=== PATIENT | female | born 1995 | race Caucasian/White ===

== ENCOUNTER 2019-12-10 00:19 | Emergency (ER) | payer OTHER, SELFPAY ==
[2019-12-10] VITALS (7 sets, daily range): BP systolic 79–132; BP diastolic 42–86; PULSE 103–132; RESP 15–18; TEMP 36.7–36.9; O2SAT 98–100; BMI 18.6
--- NOTE | 2019-12-10 00:47 | ECG_ITS ---
[facility] Test Date: 2019-12-10 Pat Name: Rissa Kyle Department: Room: Gender: Female Spa Associate: : 1995 Requested By: Erlinda Vázquez Order Number: [id number] Hendrickson MD: Riley Ledesma M.D. Measurements Intervals [place] Rate: 112 P: 78 SC: 145 QRS: 83 QRSD: 86 T: 67 QT: 320 QTc: 438 Interpretive Statements SINUS TACHYCARDIA ABNORMAL RHYTHM ECG No previous ECG available for comparison Electronically Signed On 12-11-2019 19:47:56 CDT by Riley Ledesma M.D. [email or web address] Worldwideselect medical [facility] [email or web address]/store/Ov/[id number]
--- NOTE | 2019-12-10 00:48 | ED_ITS ---
HPI - Arrhythmia/Palpitations General: Chief Complaint: Arrhythmia/Palpitations Stated Complaint: LEFT BREAST PAIN Time Seen by Provider: 12/10/19 00:20 Source: patient Mode of arrival: ambulatory Limitations: no limitations History of Present Illness: HPI narrative: Patient is a 24-year-old female who presents to ED today with a complaint of left breast pain and redness that began today. Patient tells me she is breast-feeding her [id number] . She tells me she has had previous episodes of mastitis and this feels similar. She states she noticed a fever today of 101. She treated this with Ibuprofen and Tylenol. She states this evening she was lying on the couch watching television when she began feeling as if her heart was racing and felt short of breath. She states she checked her pulse and it was elevated thus decided to come to the emergency department for evaluation. Patient denies lightheadedness or dizziness. She has no previous cardiac or pulmonary history. No new medications or drug use. MD complaint: rapid heart beat Onset (ago): hour(s) Duration: intermittent Context: occurred during rest Associated symptoms: Deny nausea, pre-syncope, syncope or vomiting Review of Systems Const: Reports: fever(s) and chills; Denies: body aches, fatigue or malaise Card: Reports: palpitations; Denies: chest pain, irregular heart rhythm, edema, swelling of feet/ankles, lightheadedness, syncope, pre-syncope, dyspnea on exertion, orthopnea or leg pain with exertion Resp: Reports: dyspnea; Denies: productive cough, non-productive cough, wheezing, pain on inspiration, change in phlegm color, hemoptysis or chest congestion GI: Denies: abdominal pain, nausea, vomiting or diarrhea : Denies: flank pain, difficulty voiding, dysuria, urinary frequency, urinary urgency or urinary hesitancy Musc: Denies: neck pain, back pain, extremity pain, extremity swelling, joint pain or joint swelling Skin/Breast: Reports: breast skin changes (redness) and other (L breast pain ) Neuro: Denies: headache(s), numbness in extremities, weakness in extremities or sensory changes [facility] ED Female Reproductive History: Date of last menstrual period: 12/09/19 Physical Exam Const: COMMON NORMALS: no acute distress, average body habitus, patient el ented x3, no limitations, healthy appearing, alert and well nourished ORIENTATION/CONSCIOUSNESS: Yes oriented to person, Yes oriented to place and Yes oriented to time HENMT: COMMON NORMALS: normocephalic and atraumatic HEAD & SCALP: normocephalic and atraumatic Chest: OTHER: pt has minor redness/warmth to superior/lateral L breast-area is wedge shaped consistent with mastitis; no induration or concerns for abscess at this time Resp: COMMON NORMALS: normal respiratory effort and clear to auscultation bilaterally AUSCULTATION: clear to auscultation bilaterally Cardio: COMMON NORMALS: regular rhythm RATE: tachycardic RHYTHM: regular rhythm GI: COMMON NORMALS: Normal to inspection, nondistended, normoactive bowel sounds present, Soft to palpation, non-tender, No hepatosplenomegaly present and no masses PALPATION: Yes Soft to palpation and Yes No hepatosplenomegaly present Extremity: GENERAL: Yes normal exam except as noted Neuro: COMMON NORMALS: patient oriented x3 SENSORIUM/ORIENTATION: Yes alert, Yes oriented to person, Yes oriented to place and Yes oriented to time Skin: NARRATIVE SKIN EXAM: see chest examination; otherwise normal skin exam Course Reevaluation(s): Reevaluation #1: Patient extremely anxious upon re- examination. She keeps asking me if I believe she has heart disease. She is complaining now of epigastric pain. She states she burps and tastes pizza that she had this evening. She is slightly diaphoretic. She states she feels better knowing her EKG was normal apart from a slightly fast rate. Pts labs overall look good. CXR normal. Will give her a GI cocktail and 0.5mg ativan and see if this will help with symptoms. Reevaluation #2: Patient states GI cocktail completely alleviated her GI pain. She does feel better after 0.5mg ativan but still anxious. She is asking about her CXR stating her father had lung cancer and emphysema and questions whether she has these as well. Patient's HR goes anywhere from 90s to 110s-staying in sinus rhythm. Her pressure is stable. There was an episode during her stay where I believe she became extremely anxious and vasovagaled down but pressures are stable now. Vital Signs: Vital signs: Vital Signs Temperature 98.0 F 12/10/19 01:30 Pulse Rate 115 H 12/10/19 03:04 Respiratory Rate 18 12/10/19 03:04 Blood Pressure 110/69 12/10/19 03:04 Pulse Oximetry 98 12/10/19 03:04 MDM - Arrhythmia/Palpitations MDM Narrative: Medical decision making narrative: Patient has remained tachycardic throughout her stay. I feel this is most likely due to her extreme anxiety. She has mild leukocytosis at 12.4. She has a normal lactate. She is afebrile here. She has a mild to moderate left breast mastitis. There is nothing else clinically to explain the elevations in her heart rate and reported fevers. Her UA is normal. CXR is normal. Patient will be discharged home with a prescription for Keflex. Return to ED precautions given. Lab Data: Labs: Lab Results 12/10/19 12/10/19 12/10/19 Range/Units 00:51 01:04 01:04 WBC 12.4 H (4.0-10.0) 10^3/ uL RBC 4.09 L (4.1-5.3) 10^6/u L Hgb 12.5 (11.5-15.3) g/dL Hct 38.5 (37.0-47.0) % MCV 94.1 (81-99) fL MCH 30.6 (28.0-34.0) pg MCHC 32.5 (30.0-36.0) g/dL RDW 12.2 (12.1-15.1) % Plt Count 225 (130-400) 10^3/c mm MPV 9.8 (7.4-10.4) fL Neut % (Auto) 83.7 % Lymph % (Auto) 8.1 % [place] % (Auto) 7.7 % Eos % (Auto) 0.1 % Baso % (Auto) 0.2 % Neut # (Auto) 10.36 H (1.8-7.7) 10^3/u L Lymph # (Auto) 1.0 (0.8-4.8) 10^3/u L [place] # (Auto) 1.0 H (0.2-0.9) 10^3/u L Eos # (Auto) 0.0 (0.0-0.8) 10^3/u L Baso # (Auto) 0.0 (0.0-0.1) 10^3/u L Nucleated RBC % (a uto) 0 % Nucleated RBCs # 0.0 /100WBC Sodium 138 (136-145) mmol/L Potassium 3.3 L (3.5-5.1) mmol/L Chloride 105 (98-107) mmol/L Carbon Dioxide 21 L (22-29) mmol/L Anion Gap 15.3 (5-19) BUN 16 (6-20) mg/dL Creatinine 0.8 (0.5-0.9) mg/dL GFR Calculation 88.9 L (90-130) mL/min Glucose 122 H (65-115) mg/dL Calculated Osmolal ity 288 (285-295) mOsm/k g Lactic Acid (0.5-2.2) mmol/L Calcium 8.8 (8.5-10.5) mg/dL Total Bilirubin 0.4 (0.15-1.2) mg/dL AST 14 (0-32) U/L ALT 13 (0-33) U/L Alkaline Phosphata se 85 (35-105) IU/L Total Protein 7.5 (6.6-8.7) g/dL Albumin 4.3 (3.5-5.2) g/dL Globulin 3.2 (1.3-4.6) g/dL HCG, Qual (Negative) Urine Color Yellow (Yellow) Urine Appearance Clear (CLEAR) Urine pH 7 (5-7) Ur Specific Gravit y 1.010 (1.005-1.030) Urine Protein Neg (Negative) Urine Glucose (UA) Norm (Normal) Urine Ketones Negative (Negative) Urine Blood 2+ H (Negative) Urine Nitrate Negative (Negative) Urine Bilirubin Neg (Negative) Urine Urobilinogen Norm (Negative) mg/dL Ur Leukocyte Marian ase Negative (Negative) Urine RBC 0-4 H (0-2) /hpf Urine WBC 0-4 H (0-5) /hpf Ur Squamous Epith Cells 5-10 H (0-5) /hpf Amorphous Sediment Not Reportable Urine Bacteria Trace (NONE) /hpf Urine Mucus 1+ /hpf 12/10/19 12/10/19 Range/Units 01:04 01:04 WBC (4.0-10.0) 10^3/ uL RBC (4.1-5.3) 10^6/u L Hgb (11.5-15.3) g/dL Hct (37.0-47.0) % MCV (81-99) fL MCH (28.0-34.0) pg MCHC (30.0-36.0) g/dL RDW (12.1-15.1) % Plt Count (130-400) 10^3/c mm MPV (7.4-10.4) fL Neut % (Auto) % Lymph % (Auto) % [place] % (Auto) % Eos % (Auto) % Baso % (Auto) % Neut # (Auto) (1.8-7.7) 10^3/u L Lymph # (Auto) (0.8-4.8) 10^3/u L [place] # (Auto) (0.2-0.9) 10^3/u L Eos # (Auto) (0.0-0.8) 10^3/u L Baso # (Auto) (0.0-0.1) 10^3/u L Nucleated RBC % (a uto) % Nucleated RBCs # /100WBC Sodium (136-145) mmol/L Potassium (3.5-5.1) mmol/L Chloride (98-107) mmol/L Carbon Dioxide (22-29) mmol/L Anion Gap (5-19) BUN (6-20) mg/dL Creatinine (0.5-0.9) mg/dL GFR Calculation (90-130) mL/min Glucose (65-115) mg/dL Calculated Osmolal ity (285-295) mOsm/k g Lactic Acid 1.8 (0.5-2.2) mmol/L Calcium (8.5-10.5) mg/dL Total Bilirubin (0.15-1.2) mg/dL AST (0-32) U/L ALT (0-33) U/L Alkaline Phosphata se (35-105) IU/L Total Protein (6.6-8.7) g/dL Albumin (3.5-5.2) g/dL Globulin (1.3-4.6) g/dL HCG, Qual Negative (Negative) Urine Color (Yellow) Urine Appearance (CLEAR) Urine pH (5-7) Ur Specific Gravit y (1.005-1.030) Urine Protein (Negative) Urine Glucose (UA) (Normal) Urine Ketones (Negative) Urine Blood (Negative) Urine Nitrate (Negative) Urine Bilirubin (Negative) Urine Urobilinogen (Negative) mg/dL Ur Leukocyte Marian ase (Negative) Urine RBC (0-2) /hpf Urine WBC (0-5) /hpf Ur Squamous Epith Cells (0-5) /hpf Amorphous Sediment Urine Bacteria (NONE) /hpf Urine Mucus /hpf Imaging Data^: CXR: Radiologist's impression: [address] [address] XRay Report Signed Patient: Rissa Kyle Unit #: [id number] : 1995 Age/Sex: 24 / F ADM Date: 12/10/19 Loc: ER Room/Bed: Attending Dr: Ordering Provider/Ordering MD: Erlinda Vázquez Date of Service: 12/10/19 Procedure(s): XR chest 1V portable [id number] Accession Number(s): [id number] Report Number: [id number] PROCEDURE INFORMATION: Exam: XR Chest, 1 View Exam date and time: 12/10/2019 12:48 AM Age: 24 years old Clinical indication: Dyspnea; Left-sided chest pain TECHNIQUE: Imaging protocol: XR of the chest Views: 1 view. COMPARISON: No relevant prior studies available. FINDINGS: Lungs: No CHF/pulmonary edema. Visible lungs appear essentially clear. Pleural space: No visible pneumothorax. No definite pleural fluid. Heart/Mediastinum: Heart size is within normal limits. Bones/joints: No significant acute finding. XR/XR chest 1V portable [id number] IMPRESSION: 1. Essentially unremarkable single view chest. 2. Other findings discussed above. Dictated By: Jeff Sutton MD Signed By: Jeff Sutton MD Signed Date/Time: 12/10/19155 DD/ 3 EKG Data^: EKG 1: EKG interpretation date: 12/10/19 EKG interpretation time: 01:03 Interpretation: Sinus tachycardia Rate [address] elevation or depression changes noted Other EKG comments: Chest X-Ray 12/10/19 00:47 IMPRESSION: 1. Essentially unremarkable single view chest. 2. Other findings discussed above. Discharge Plan Discharge Patient Disposition: Home Clinical Impression: Acute mastitis of left breast, Panic attack Condition: Stable Prescriptions: New Keflex 500 mg capsule 500 mg PO Q6H 7 Days Qty: 28 RF: 0 Discharge Orders: Discharge Order (Routine); Ordered 12/10/19 Ordered By: Erlinda Vázquez Referrals: Axel Melchor MD [Primary Care Provider] - Patient Instructions: Mastitis (ED), Anxiety (ED), Panic Attack Activity Restrictions/Additional Instructions: As discussed you may return to the emergency department for any worsening symptoms including worsening palpitations, heart racing, sweating, lightheadedness/dizziness, passing out episodes, or any other concerns you may have. Discharge Date/Time: 12/10/19 03:04 Coding Level of Care Code ED Aquaculture Director for Chg Fwd Exam Detailed
[2019-12-10 01:24] LABS: Basophils % 0.2 %; Eosinophils % 0.1 %; Hematocrit 38.5 % (37.0-47.0); Hemoglobin 12.5 g/dL (11.5-15.3); Lymphocytes % 8.1 %; Mean Corpuscular HGB Conc 32.5 g/dL (30.0-36.0); Mean Corpuscular Hemoglobin 30.6 pg (28.0-34.0); Mean Corpuscular Volume 94.1 fL (81-99); Mean Platelet Volume 9.8 fL (7.4-10.4); Monocytes % 7.7 %; Neutrophils # 10.36 10^3/uL (1.8-7.7); Neutrophils % 83.7 %; Nucleated Red Blood Cells % 0 %; Platelet Count 225 10^3/cmm (130-400); Red Blood Count 4.09 10^6/uL (4.1-5.3); Red Cell Distribution Width 12.2 % (12.1-15.1); White Blood Count 12.4 10^3/uL (4.0-10.0)
[2019-12-10 01:38] LABS: Lactic Sepsis W/Reflex 1.8 mmol/L (0.5-2.2)
[2019-12-10 01:39] LABS: Alanine Aminotransferase 13 U/L (0-33); Albumin Level 4.3 g/dL (3.5-5.2); Alkaline Phosphatase 85 IU/L (35-105); Anion Gap 15.3 (5-19); Aspartate Amino Transferase 14 U/L (0-32); Blood Urea Nitrogen 16 mg/dL (6-20); Calcium 8.8 mg/dL (8.5-10.5); Carbon Dioxide 21 mmol/L (22-29); Chloride 105 mmol/L (98-107); Globulin 3.2 g/dL (1.3-4.6); Glomerular Filtration Rate 88.9 mL/min (90-130); Glucose 122 mg/dL (65-115); Osmolality Calculated 288 mOsm/kg (285-295); Potassium 3.3 mmol/L (3.5-5.1); Sodium 138 mmol/L (136-145); Total Bilirubin 0.4 mg/dL (0.15-1.2); Total Protein 7.5 g/dL (6.6-8.7)
[2019-12-10 01:50] LABS: Bilirubin Urine Neg (Negative); Blood Urine 2+ (Negative); Glucose Urine UA Norm (Normal); Ketones Urine Negative (Negative); Leukocyte Esterase Urine Negative (Negative); Nitrate Urine Negative (Negative); Protein Urine Neg (Negative); Urine Appearance Clear (CLEAR); Urine Color Yellow (Yellow); Urobilinogen Urine Norm (Negative); pH Urine 7 (5-7)
[2019-12-10 01:50] LABS: HCG, Serum Qual Negative (Negative)
[2019-12-10 01:51] LABS: Add Urine Microscopic? YES
[2019-12-10 01:52] LABS: Add Urine Culture? No; Bacteria Urine TRACE /hpf; Mucus Urine 1+ /hpf; RBC Urine 0-4 /hpf (0-2); WBC Urine 0-4 /hpf (0-5)
--- NOTE | 2019-12-10 01:55 | PC.NURSE ---
Patient stated that she was having burning feeling in her stomach and radiated down her abdomen. ER PA was informed.
--- NOTE | 2019-12-10 01:59 | PC.NURSE ---
rechecked BP for accuracy
[2019-12-10] MEDS: sodium chloride 0.9% 1,000 ML 999 ML IV (02:02)
[2019-12-10] MEDS: lidocaine 2% viscous 15 ML, aluminum-mag hydrox-simethicon 30 ML, sucralfate oral liq 1 GM PO (02:10)
[2019-12-10] MEDS: LORazepam 2 mg/mL INJ 1 mL 0.5 MG IVP ×2 (02:18→02:46)
== END 2019-12-10 03:04 | disposition home or self-care (01) ==
PROVIDERS: Emergency Provider Physician Assistant; PCP Family Medicine
DX: N61.0 Mastitis without abscess (principal); F41.0 Panic disorder [episodic paroxysmal anxiety]
CPT/HCPCS: 12345; 71045; 80053; 81001; 83605; 84703; 85025; 87040; 93005; 96360; 96375; 99283; J2060; J7030

== ENCOUNTER 2021-07-21 21:46 | Emergency (ER) | payer MEDICAID, SELFPAY ==
[2021-07-21 21:52] VITALS: BP 123/80; PULSE 118; RESP 20; TEMP 36.8; O2SAT 96; BMI 20.9
--- NOTE | 2021-07-21 23:18 | ECG_ITS ---
[facility] Test Date: 2021-07-21 Pat Name: Rissa Kyle Department: Room: Gender: Female Food Preparation Kitchen Aide: : 1995 Requested By: Cedric Charles Order Number: [id number] Hendrickson MD: Riley eLdesma M.D. Measurements Intervals [place] Rate: 106 P: 79 [place]: 161 QRS: 87 QRSD: 81 T: 63 QT: 328 QTc: 437 Interpretive Statements SINUS TACHYCARDIA POSSIBLE LEFT ATRIAL ENLARGEMENT [-0.1mV P-WAVE IN V1/V2] Compared to ECG 12/10/2019 01:03:34 No significant changes Electronically Signed On 07-22-2021 20:56:12 CDT by Riley Ledesma M.D. [id number] f
--- NOTE | 2021-07-21 23:18 | XRR_ITS ---
PROCEDURE INFORMATION: Exam: XR Chest Exam date and time: 07/21/2021 11:26 PM Age: 26 years old Clinical indication: Other: Palpitations TECHNIQUE: Imaging protocol: XR of the chest. Views: 1 view. COMPARISON: CR XR chest 1V portable [id number] 12/10/2019 12:59 AM FINDINGS: Lungs: Right upper lobe airspace disease noted, suspicious for pneumonia. Left lung is free of infiltrates. Pleural spaces: No pleural effusion. No pneumothorax. Heart/Mediastinum: No cardiomegaly. Bones/joints: Unremarkable. XR/XR chest 1V portable [id number] IMPRESSION: 1. Right upper lobe airspace disease noted, suspicious for pneumonia. This is new when compared to 12/10/2019. 2. Left lung is free of infiltrates.
--- NOTE | 2021-07-21 23:19 | ED_ITS ---
HPI - General Adult General: Chief complaint: General Medical Stated complaint: Heart racing from new meds Time Seen by Provider: 07/21/21 22:13 History of Present Illness: Patient is a 26-year-old female comes to the ED with palpitations. Patient has been dealing with a upper respiratory infection for the past 18 days and was on amoxicillin previously and just got put on azithromycin today by her primary care physician. She took her first dose of azithromycin at about 6 PM tonight. At 9 PM while she was laying down she started feeling her heart racing. She also was feeling a little jittery during the palpitations and says her extremities felt a little shaky. This was the first time she is taking azithromycin and thinks that that may be caused her symptoms tonight. denies any shortness of breath, chest pain, nausea/vomiting, lip or tongue swelling, rash or diarrhea. She still is having a dry cough from her upper respiratory infection she has had for the past couple weeks but denies any recent fevers. Associated symptoms: Reports palpitations; Deny chest pain, dyspnea, headache(s), nausea, rash or vomiting Review of Systems Const: Denies: fever(s), chills or fatigue Eyes: Denies: change in vision or eye discomfort ENMT: Denies: throat pain, odynophagia, nasal discharge or nasal congestion Card: Reports: palpitations; Denies: chest pain, edema, swelling of feet/ankles, dyspnea on exertion or orthopnea Resp: Reports: non-productive cough; Denies: dyspnea or productive cough GI: Denies: abdominal pain, nausea, vomiting, diarrhea, constipation or hematochezia : Denies: flank pain, dysuria or hematuria Musc: Denies: neck pain, back pain or extremity swelling Skin/Breast: Denies: rash or new lesions Neuro: Denies: headache(s), numbness in extremities or weakness in extremities All/Imm: Reports: other (Body felt jittery); Denies: urticaria, throat swelling or tongue swelling PFS ED PFSH: Medical History No pertinent family history Surgical History No pertinent past surgical history Female Reproductive History: Date of last menstrual period: 12/09/19 Physical Exam Const: COMMON NORMALS: no acute distress, patient oriented x3, healthy a ppearing and alert GENERAL APPEARANCE: cooperative and comfortable HENMT: COMMON NORMALS: normocephalic HEAD & SCALP: normocephalic MOUTH: Normal oral and palatal mucosa present THROAT: posterior oropharynx normal and uvula midline Eye: COMMON NORMALS: Equal, round and reactive pupils present and conjunctivae normal CONJUNCTIVA: Yes conjunctivae normal PUPIL: Yes Equal, round and reactive pupils present Neck/C-Spine: COMMON NORMALS: supple GENERAL: Yes normal visual inspection Resp: COMMON NORMALS: normal respiratory effort, No retractions, No use of accessory muscles and clear to auscultation bilaterally AUSCULTATION: clear to auscultation bilaterally Cardio: COMMON NORMALS: regular rate, regular rhythm, S1 normal heart sound present, S2 normal heart sound present, No gallops present (Cardio), No clicks present (Cardio), No murmurs present (Cardio) and Peripheral pulses 2+ throughout RATE: regular rate RHYTHM: regular rhythm HEART SOUNDS: S1 normal heart sound present and S2 normal heart sound present PERIPHERAL PULSES: Peripheral pulses 2+ throughout GI: COMMON NORMALS: Normal to inspection, nondistended, normoactive bowel sounds present, Soft to palpation, non-tender and no masses PALPATION: Yes Soft to palpation : COMMON NORMALS: Yes no CVA tenderness BLADDER/KIDNEY EXAM: Yes no CVA tenderness Back/Pelvis: COMMON NORMALS: no CVA tenderness Extremity: COMMON NORMALS: normal to inspection and no pedal edema Neuro: COMMON NORMALS: patient oriented x3 and moves all extremities SENSORIUM/ORIENTATION: Yes alert Skin: GENERAL SKIN EXAM: dry skin Course Vital Signs: Vital signs: Vital Signs Temperature 98.3 F 07/21/21 21:52 Pulse Rate 118 H 07/21/21 21:52 Respiratory Rate 20 H 07/21/21 21:52 Blood Pressure 123/80 07/21/21 21:52 Pulse Oximetry 96 07/21/21 21:52 [facility] - General Adult Medical Decision Making Patient is a 26-year-old female comes to the ED with palpitations. Patient has been dealing with a cough and upper respiratory symptoms for the past couple weeks and took a course of amoxicillin and was just started on a course of azithromycin. She took her first dose of azithromycin tonight and her symptoms of palpitations and feeling a little jittery occurred several hours later. Patient's pulse was a little tacky 818 the rest of her vitals are stable. Exam is benign and lungs are clear to auscultation bilaterally. CBC and CMP were u nremarkable and chest x-ray showed some right upper lobe pneumonia. Patient was given a dose of Benadryl and Solu-Medrol here in the ED to help with possible adverse reaction to azithromycin. Her pulse is now returned to normal and its been below 100. She was diagnosed with adverse reaction to an antibiotic and pneumonia and was discharged home with some doxycycline. She was told to stop taking the azithromycin. Follow-up with PCP in the next 3 to 5 days for reevaluation. Return ED precautions given. Patient is to agree with plan. Lab Data I reviewed the patient's lab results. : 07/21/21 23:25 07/21/21: Radiology Impressions Chest X-Ray 07/21/21 23:18 IMPRESSION: 1. Right upper lobe airspace disease noted, suspicious for pneumonia. This is new when compared to 12/10/2019. 2. Left lung is free of infiltrates. Laboratory Results WBC 8.7 10^3/uL (4.0-10.0) 07/21/21: RBC 3.88 10^6/uL (4.1-5.3) L 07/21/21: Hgb 11.1 g/dL (11.5-15.3) L 07/21/21: Hct 35.8 % (37.0-47.0) L 07/21/21: MCV 92.3 fl (81-99) 07/21/21: MCH 28.6 pg (28.0-34.0) 07/21/21: MCHC 31.0 g/dL (30.0-36.0) 07/21/21: RDW 12.7 % (12.1-15.1) 07/21/21: Plt Count 477 10^3/cmm (130-400) H 07/21/21: MPV 9.0 fL (7.4-10.4) 07/21/21: Neut % (Auto) 62.7 % 07/21/21:25 Lymph % (Auto) 26.3 % 07/21/21 23:25 [place] % (Auto) 8.4 % 07/21/21 23:25 Eos % (Auto) 1.8 % 07/21/21 23:25 Baso % (Auto) 0.5 % 07/21/21 23:25 Neut # (Auto) 5.48 10^3/uL (1.8-7.7) 07/21/21 23:25 Lymph # (Auto) 2.3 10^3/uL (0.8-4.8) 07/21/21 23:25 [place] # (Auto) 0.7 10^3/uL (0.2-0.9) 07/21/21 23: Eos # (Auto) 0.2 10^3/uL (0.0-0.8) 07/21/21 23: Baso # (Auto) 0.0 10^3/uL (0.0-0.1) 07/21/21 23: Nucleated RBC % (auto) 0 % 07/21/21 23: Nucleated RBCs # 0.0 /100WBC 07/21/21 23:25 Sodium 139 mmol/L (136-145) 07/21/21 23:25 Potassium 3.9 mmol/L (3.5-5.1) 07/21/21 23: Chloride 104 mmol/L (98-107) 07/21/21 23: Carbon Dioxide 24 mmol/L (22-29) 07/21/21 23: Anion Gap 14.9 (5-19) 07/21/21 23:25 BUN 11 mg/dL (6-20) 07/21/21 23:25 Creatinine 0.6 mg/dL (0.5-0.9) 07/21/21 23:25 GFR Calculation 121.8 mL/min (90-130) 07/21/21 23:25 Glucose 96 mg/dL (65-115) 07/21/21: Calculated Osmolality 287 mOsm/kg (285-295) 07/21/21 23:25 Calcium 8.4 mg/dL (8.5-10.5) L 07/21/21 23:25 Total Bilirubin 0.2 mg/dL (0.15-1.2) 07/21/21 23:25 AST 15 U/L (0-32) 07/21/21 23:25 ALT 13 U/L (0-33) 07/21/21 23:25 Alkaline Phosphatase 88 IU/L (35-105) 07/21/21 23:25 Total Protein 8.0 g/dL (6.6-8.7) 07/21/21 23:25 Albumin 4.0 g/dL (3.5-5.2) 07/21/21 23:25 Globulin 4.0 g/dL (1.3-4.6) 07/21/21 23:25 HCG, Qual Negative (Negative) 07/21/21 23:25 Discharge Plan Discharge Patient Disposition: Home Clinical Impression: Adverse reaction to antibiotic Pneumonia Qualifiers: Pneumonia type: due to unspecified organism Laterality: right Lung location: upper lobe of lung Qualified Code(s): J18.9 - Pneumonia, unspecified organism Condition: Stable Prescriptions: New doxycycline hyclate 100 mg capsule 100 mg PO BID 10 Days Qty: 20 0RF Discharge Orders: Discharge ED (Routine); Ordered 07/22/21 Ordered By: Cedric Charles Referrals: Axel Melchor MD [Primary Care Provider] - Discharge Diet: Regular Discharge Activity: Resume usual activity Patient Instructions: Pneumonia (ED) Activity Restrictions/Additional Instructions: Follow-up with medical provider as directed in the next 5 to 7 days for reevaluation. Stop taking your azithromycin and you can start taking your new prescription of doxycycline tomorrow. Take medications as prescribed. Return to the ER or your medical provider if condition worsens. Please read and understand discharge instructions. Thank you for choosing [facility] for your healthcare needs today. Please realize this is an emergency room and that we are providing you with a medical screening exam and this may not be complete and all inclusive of all the testing and or work up that you may need to determine your ailment or severity of your illness. It is very important that you follow up as instructed or that you return to the Emergency Department should you have concerns or if your condition changes or worsens in any way. Coding Level of Care Code ED Group Worker for Kelsie Day Exam Comprehensive
[2021-07-21] MEDS: diphenhydrAMINE 25 mg Capsule PO (23:42)
[2021-07-21 23:47] LABS: Basophils % 0.5 %; Eosinophils # 0.2 10^3/uL (0.0-0.8); Eosinophils % 1.8 %; Hematocrit 35.8 % (37.0-47.0); Hemoglobin 11.1 g/dL (11.5-15.3); Lymphocytes # 2.3 10^3/uL (0.8-4.8); Lymphocytes % 26.3 %; Mean Corpuscular Hemoglobin 28.6 pg (28.0-34.0); Mean Corpuscular Volume 92.3 fl (81-99); Monocytes # 0.7 10^3/uL (0.2-0.9); Monocytes % 8.4 %; Neutrophils # 5.48 10^3/uL (1.8-7.7); Neutrophils % 62.7 %; Nucleated Red Blood Cells % 0 %; Platelet Count 477 10^3/cmm (130-400); Red Blood Count 3.88 10^6/uL (4.1-5.3); Red Cell Distribution Width 12.7 % (12.1-15.1); White Blood Count 8.7 10^3/uL (4.0-10.0)
[2021-07-22] VITALS: BP 113/69; PULSE 86; RESP 20; O2SAT 95
[2021-07-22 00:07] LABS: HCG, Serum Qual Negative (Negative)
[2021-07-22 00:08] LABS: Alanine Aminotransferase 13 U/L (0-33); Alkaline Phosphatase 88 IU/L (35-105); Anion Gap 14.9 (5-19); Aspartate Amino Transferase 15 U/L (0-32); Blood Urea Nitrogen 11 mg/dL (6-20); Calcium 8.4 mg/dL (8.5-10.5); Carbon Dioxide 24 mmol/L (22-29); Chloride 104 mmol/L (98-107); Glomerular Filtration Rate 121.8 mL/min (90-130); Glucose 96 mg/dL (65-115); Osmolality Calculated 287 mOsm/kg (285-295); Potassium 3.9 mmol/L (3.5-5.1); Sodium 139 mmol/L (136-145); Total Bilirubin 0.2 mg/dL (0.15-1.2)
[2021-07-22 00:30] VITALS: BP 122/67; PULSE 86; RESP 20; O2SAT 98
[2021-07-22 01:30] VITALS: BP 120/70; PULSE 86; RESP 20; O2SAT 98
== END 2021-07-22 01:30 | disposition home or self-care (01) ==
PROVIDERS: Emergency Medicine; Emergency Provider Physician Assistant; PCP Family Medicine
DX: J18.9 Pneumonia, unspecified organism (principal); T36.3X5A Adverse effect of macrolides, initial encounter; R00.2 Palpitations
CPT/HCPCS: 71045; 80053; 84703; 85025; 93005; 96372; 99284; J2930

== ENCOUNTER 2021-10-14 13:49 | Outpatient (CLI) | payer MEDICAID, SELFPAY ==
--- NOTE | 2021-10-14 14:07 | US_ITS ---
WS: [id number] ULTRASOUND BREAST RIGHT TECHNIQUE: Ultrasound right breast focused area of concern. CLINICAL INFORMATION: FIBROCYSTIC BREAST DZ IN FEMALE COMPARISON: None. FINDINGS: Ultrasound RIGHT breast upper outer RIGHT breast area of concern 9 to 11:00 position. Dense underlyin g parenchymal tissue. No underlying cystic or solid lesions. Normal visualized breast parenchyma. Nor mal-appearing lymph nodes RIGHT axilla. US/US breast RT limited* [id number] IMPRESSION: BI-RADS 2 benign Follow up: Annual screening mammography age 41
== END 2021-10-14 13:50 | disposition home or self-care (01) ==
LOC: RAD 13:49
PROVIDERS: PCP Family Medicine; Visit Provider Family Medicine
DX: N60.19 Diffuse cystic mastopathy of unspecified breast (principal)
CPT/HCPCS: 76642

== ENCOUNTER → 2022-11-07 15:45 | Outpatient (BNVA) | payer MEDICAID, SELFPAY | PROVIDERS: PCP Family Medicine; Visit Provider Registered Nurse Neonatal Intensive Care | DX: R10.2 Pelvic and perineal pain (principal) | CPT/HCPCS: 81000; 87086; 87491; 87591; 87661 ==

== ENCOUNTER 2024-02-04 11:13 | Outpatient (CLI) | payer MEDICAID, SELFPAY ==
[2024-02-04 12:14] LABS: Basophils % 0.3 %; Eosinophils # 0.1 10^3/uL (0.0-0.8); Hematocrit 36.5 % (36-47); Lymphocytes # 2.3 10^3/uL (0.8-4.8); Mean Corpuscular HGB Conc 31.8 g/dL (30-55); Mean Corpuscular Hemoglobin 27.9 pg (27-33); Mean Corpuscular Volume 87.7 fl (85-98); Mean Platelet Volume 9.4 fL (7.4-10.4); Monocytes # 0.6 10^3/uL (0.2-0.9); Monocytes % 7.2 %; Neutrophils # 5.55 10^3/uL (1.8-7.7); Neutrophils % 64.3 %; Nucleated Red Blood Cells % 0 %; Platelet Count 293 10^3/cmm (157-399); Red Blood Count 4.16 10^6/uL (3.85-5.65); Red Cell Distribution Width 13.6 % (12.1-15.1); White Blood Count 8.64 10^3/uL (3.29-11.43)
[2024-02-04 12:39] LABS: Alanine Aminotransferase 17 U/L (0-33); Albumin Level 4.2 g/dL (3.5-5.2); Alkaline Phosphatase 71 U/L (35-105); Aspartate Amino Transferase 17 U/L (0-32); Blood Urea Nitrogen 12 mg/dL (6-20); Calcium 8.7 mg/dL (8.5-10.5); Carbon Dioxide 23 mmol/L (22-29); Chloride 104 mmol/L (98-107); Globulin 3.6 g/dL (1.3-4.6); Glomerular Filtration Rate 99.6 mL/min (90-130); Glucose 98 mg/dL (65-115); Osmolality Calculated 284 mOsm/kg (285-295); Sodium 137 mmol/L (136-145); Thyroid Stimulating Hormone 1.64 uIU/mL (0.27-4.20); Total Bilirubin 0.4 mg/dL (0.15-1.2); Total Protein 7.8 g/dL (6.6-8.7)
[2024-02-04 13:10] LABS: Free T4 Free Thyroxine 1.11 ng/dL (0.82-1.77)
== END 2024-02-04 11:14 | disposition home or self-care (01) ==
LOC: LAB 11:15
PROVIDERS: PCP Family Medicine; Visit Provider Nurse Practitioner Family
DX: L29.9 Pruritus, unspecified (principal)
CPT/HCPCS: 80048; 80076; 84439; 84443; 85025

== ENCOUNTER → 2024-04-27 10:04 | Outpatient (BNVA) | payer OTHER, SELFPAY | PROVIDERS: PCP Family Medicine | DX: R68.89 Other general symptoms and signs (principal) | CPT/HCPCS: 87400 ==